=== PATIENT | female | born 1995 | race Caucasian/White ===

== ENCOUNTER 2025-02-14 07:28 | Inpatient (IN) | payer MEDICAID ==
[2025-02-14] MEDS ORDERED: Ondansetron 4 MG/2 ML SDV IVPUSH PRN (07:59)
[2025-02-14] MEDS ORDERED: Methylergonovine 0.2 MG/1 ML Amp IM PRN (07:59)
[2025-02-14] MEDS ORDERED: Lidocaine 1% 50 ML MDV INJECT PRN (07:59)
[2025-02-14] MEDS ORDERED: Carboprost Tromethamine 250 MCG/1 mL Vial IM PRN (07:59)
[2025-02-14] MEDS ORDERED: Sodium Chloride 0.9% 10 ML Syringe FLUSH PRN (07:59)
[2025-02-14] MEDS ORDERED: Sodium Chloride 0.9% 2.5 ML Syringe FLUSH PRN (07:59)
[2025-02-14] MEDS ORDERED: Sodium Chloride 0.9% 20 ML SDV IV PRN (07:59)
[2025-02-14] MEDS ORDERED: Misoprostol 200 MCG Tab RECTAL PRN (07:59)
[2025-02-14] MEDS ORDERED: Butorphanol 2 MG/ML SDV IVPUSH PRN (07:59)
[2025-02-14] MEDS ORDERED: Water For Irrigation,Sterile 1,000 ML Container IRR PRN (07:59)
[2025-02-14] MEDS ORDERED: Oxytocin/0.9 % Sodium Chloride 30 UNIT/500 ML BAG IV SCH (08:00)
[2025-02-14 08:47] LABS: HEMOGLOBIN 9.8 g/dL (12.0-16.0); MEAN CORPUSCULAR HEMOGLOBIN 24.4 pg (28.0-32.0); MEAN CORPUSCULAR HGB CONC 32.7 g/dL (32.0-36.0); MEAN CORPUSCULAR VOLUME 74.8 fL (83.0-99.0); MEAN PLATELET VOLUME 10.2 fL (9.4-12.3); PLATELET COUNT,PLT 214 K/uL (150-400); RED BLOOD CELL COUNT 4.01 M/uL (4.10-5.30); WHITE BLOOD CELL COUNT,WBC 6.38 K/uL (3.9-11.3)
[2025-02-15] MEDS: Oxytocin/0.9 % Sodium Chloride 30 UNIT/500 ML BAG IV SCH (00:08)
[2025-02-15] MEDS: Lactated Ringers 1,000 ML IV SCH (00:08)
[2025-02-15] MEDS ORDERED: Famotidine 20 MG Tab PO PRN (04:23)
[2025-02-15] MEDS ORDERED: Simethicone 80 MG Tab.Chew PO PRN (04:23)
[2025-02-15] MEDS ORDERED: Ibuprofen 800 MG Tab PO PRN (04:23)
[2025-02-15] MEDS ORDERED: Aluminum Hydroxide/Magnesium Hydroxide/Simethicone Susp 30 ML Cup PO PRN (04:23)
[2025-02-15] MEDS ORDERED: Docusate Sodium 100 MG Cap PO PRN (04:23)
[2025-02-15] MEDS ORDERED: Lanolin 100% Cream 7 GM Tube TOP PRN (04:23)
[2025-02-15] MEDS ORDERED: Measles, Mumps & Rubella Vaccine 0.5 ML SDV SUBCUT ONE (04:23)
[2025-02-15] MEDS ORDERED: Acetaminophen 500 MG Tab PO PRN (04:23)
[2025-02-15 04:38] LABS: PH,UMBILICAL ARTERIAL 7.4 (7.18-7.38); PH,UMBILICAL VENOUS 7.39 (7.25-7.45)
[2025-02-15] MEDS: Benzocaine/Menthol 20%-0.5% Spray 78 GM Cannister TOP PRN (05:07)
[2025-02-15] MEDS: Witch Hazel Medicated Pads 40/Jar TOP PRN (05:08)
[2025-02-15 07:50] LABS: HEMOGLOBIN 9.6 g/dL (12.0-16.0); IMMATURE GRAN ABSOLUTE AUTO 0.05 K/uL (0.00-0.05); IMMATURE GRAN PERCENT AUTO 0.4 % (0.0-0.4); LYMPHOCYTES ABSOLUTE AUTO 0.67 K/uL (1.00-4.80); LYMPHOCYTES PERCENT AUTO 5.6 % (24.0-44.0); MEAN CORPUSCULAR HEMOGLOBIN 25.1 pg (28.0-32.0); MEAN CORPUSCULAR HGB CONC 33.1 g/dL (32.0-36.0); MEAN CORPUSCULAR VOLUME 75.7 fL (83.0-99.0); MEAN PLATELET VOLUME 10.3 fL (9.4-12.3); MONOCYTES ABSOLUTE AUTO 0.54 K/uL (0.00-0.80); MONOCYTES PERCENT AUTO 4.5 % (0.0-8.0); NEUTROPHILS ABSOLUTE AUTO 10.65 K/uL (1.80-7.70); NEUTROPHILS PERCENT AUTO 89.5 % (41.0-71.0); PLATELET COUNT,PLT 203 K/uL (150-400); RED BLOOD CELL COUNT 3.83 M/uL (4.10-5.30); WHITE BLOOD CELL COUNT,WBC 11.91 K/uL (3.9-11.3)
[2025-02-15 08:05] LABS: A/G RATIO 0.6 (0.9-1.6); ALBUMIN 2.3 g/dL (3.4-5.0); BILIRUBIN TOTAL 0.4 mg/dL (0.2-1.0); CALCIUM 8.2 mg/dL (8.5-10.1); CARBON DIOXIDE,CO2 19.2 mmol/L (21.0-32.0); CREATININE 0.8 mg/dL (0.6-1.0); EST CRCL DRUG DOSING (CG) 77.59 mL/min; POTASSIUM,K 3.8 mmol/L (3.5-5.1); PROTEIN TOTAL,TP 6.2 g/dL (6.4-8.2)
[2025-02-15] MEDS: Sodium Ferric Gluconate Cmplex 125 MG in Sodium Chloride 0.9% 100 ML IV SCH (15:02)
== END 2025-02-16 12:09 | disposition home or self-care (01) | DRG 807 ==
LOC: MW.OBCHECK 07:28 → MW.OB 07:29 → MW.OBCHECK 07:59 → OBSVTOIN 02-15 03:34 → MW.OB 02-15 08:08
PROVIDERS: ADMIT Obstetrics & Gynecology; ATTEND Obstetrics & Gynecology
PROC: 10E0XZZ Delivery of Products of Conception, External Approach (ICD-10-PCS; principal; 2025-02-15)
DX: O42.02 Full-term premature rupture of membranes, onset of labor within 24 hours of rupture (principal); Z37.0 Single live birth; O99.214 Obesity complicating childbirth; O13.4 Gestational [pregnancy-induced] hypertension without significant proteinuria, complicating childbirth; O99.02 Anemia complicating childbirth; E66.812 Obesity, class 2; Z3A.38 38 weeks gestation of pregnancy
CPT/HCPCS: 36415; 59025; 59409; 80053; 82803; 85025; 85027; 86592; 86850; 86900; 86901; A9270-GY; J2590; J2916; J7120